=== PATIENT | female | born 1970 | race Caucasian/White ===

== ENCOUNTER 2016-10-04 15:37 | Inpatient (IN) | payer BC, OTHER ==
[~2016-10-04] VITALS: Ht 172.7 cm; Wt 70.3 kg
[2016-10-05 22:43] LABS: *URINE HCG, QUAL NEGATIVE (NEGATIVE)
[2016-10-05 22:54] LABS: *AMPHETAMINE, URINE NEGATIVE (NEGATIVE); *BARBITURATE, URINE NEGATIVE (NEGATIVE); *CANNABINOID, URINE POSITIVE (NEGATIVE); *COCCAINE, URINE NEGATIVE (NEGATIVE); *OPIATE, URINE NEGATIVE (NEGATIVE); *PHENCYCLIDINE SCREEN,URINE NEGATIVE (NEGATIVE)
[2016-10-05 23:20] VITALS: BP 144/86
--- NOTE | 2016-10-05 23:20 | NUR ---
Pre-Admission Pre-admission assessment performed in the intake department of [facility]. Pt is A&O x4 and ambulatory with a steady gait. She appears mildly intoxicated and answers all questions appropriately. She reports no known food or drug allergies. Pt states that she is here to be treated for ETOH dependence. Last drank 5 beers today at 1600. Vital signs are B/P 144/86, HR 98, RR 18, O2 sat 96%, T 98.1 pain 0/10. She explains that she had 2 grand mal seizures one month ago r/t ETOH withdrawal . Admission to continue [facility] the [facility].
[2016-10-05] MEDS ORDERED: ACETAMINOPHEN 325 MG TABLET PO PRN (23:45)
[2016-10-05] MEDS ORDERED: LORAZEPAM 1 MG TABLET PO PRN (23:45)
[2016-10-05] MEDS ORDERED: MAGNESIUM HYDROXIDE 30 ML LIQUID UDC PO PRN (23:45)
[2016-10-05] MEDS ORDERED: ONDANSETRON 4 MG/2 ML VIAL IM PRN (23:45)
[2016-10-05] MEDS ORDERED: MAG HYDROX/AL HYDROX/SIMETH 30 ML LIQUID UDC PO PRN (23:45)
[2016-10-05] MEDS ORDERED: MIRALAX 17 GM POWD.PACK PO PRN (23:45)
[2016-10-05] MEDS ORDERED: diphenhydrAMINE 50 MG CAPSULE PO PRN (23:45)
[2016-10-05] MEDS ORDERED: DICYCLOMINE HCL 20 MG TABLET PO PRN (23:45)
[2016-10-05] MEDS ORDERED: LOPERAMIDE HCL 2 MG CAPSULE PO PRN ×2 (23:45)
[2016-10-05] MEDS ORDERED: THIAMINE HCL 200 MG/2 ML VIAL IM ONE (23:45)
[2016-10-05] MEDS ORDERED: TRAZODONE 50 MG TABLET PO ONE (23:45)
[2016-10-05] MEDS ORDERED: LORAZEPAM 2 MG/1 ML VIAL IM PRN (23:45)
[2016-10-05] MEDS ORDERED: LORAZEPAM 1 MG TABLET ONE (23:58)
[2016-10-06] MEDS: LORAZEPAM 1 MG TABLET PO PRN ×3 (00:07→11:47)
--- NOTE | 2016-10-06 00:08 | NUR ---
PRN Ativan and Trazodone Pt reports feeling anxious and unable to relax. CIWA score 6. B/P 144/86 and HR 98. CIWA score 6. Pt explains that takes Trazodone every night for sleep and that it helps as a mood stabilizer. PRN Ativan and Trazodone administered.
[2016-10-06 01:07] VITALS: BP 127/76
--- NOTE | 2016-10-06 01:08 | NUR ---
PRN Ativan and Trazodone reassessment PRN Ativan and Trazodone effective. Pt is lying comfortably in bed resting with eyes closed. Respirations even and unlabored. Safety measures in place.
--- NOTE | 2016-10-06 01:10 | NUR ---
ADMISSION Pt is a 45 yo female who arrived on the [facility] at 2335 on 10/05/16 for medically supervised detox. She is A&O x4 and ambulatory with a steady gait. Body check performed by WINE STEWARD and skin check performed by the nurse. She is A&O x4 and ambulatory with a steady gait. NKA, full code status, and on a regular diet. Pt is cooperative during assessment. Vitals in intake were B/P 144/86, HR 98, RR 18, O2 sat 96%, T 98.1 pain 0/10. Pt is 5'8" and weighs 155lb. She has a [facility] grand mal seizure x2 one month ago r/t ETOH withdrawal, depression, anxiety, and bipolar. She had TMJ surgery 25 years ago and left ovary removed 10 years ago. Pt has not been on any treatment recently for anxiety and bipolar. She takes Trazodone QHS for sleep and as a mood stabilizer. Lung sounds clear, PERRLA, brisk capillary refill, bowel sounds present, skin is intact. LMP was 09/21/16 and last BM was today. History of Use Five 12oz Beers or up to 750mL vodka per day for the past 2 months. Last drank 5 beers on 10/03/16 at 1600. She has used ETOH for 14 years. Treatment History [facility] in 2016 for 90 days. [facility] in 2014 for 90 days. [facility] in 2009 for 90 days 7 other treatment centers Pt smokes 8 cigarettes per day. Prior to relapsing two months ago she had 6 months of sobriety. She decided to come to treatment today because "I went hard again". The pt explains that one month ago she quit drinking abruptly and had 2 grand mal seizures in one day. She was treated in the ED department in [place] and was advised not to stop drinking completely. Pt lives with a roommate and recently quit her job. She provided urine for UDS and test. Admission orders received. Pt educated regarding use of the call light and all questions answered. Fall and seizure precautions in place. Bed is down with call light in reach.
[2016-10-06 04:00] VITALS: BP 85/57
[2016-10-06] MEDS ORDERED: TRAZ-144 PO (05:54)
--- NOTE | 2016-10-06 07:20 | NUR ---
END OF SHIFT Report provided to day shift nurse. Pt is lying in bed resting. She is a 45 yo female admitted to [facility] on 10/05 at 2335 for ETOH dependence. She has NKA, is full code, and on a regular diet. PRN Ativan and Trazodone administered. Last CIWA was 1. She drank 500mL and slept for 5 hours.
--- NOTE | 2016-10-06 07:50 | NUR ---
START OF SHIFT Received patient this morning alert and oriented x4. Patient requesting nurse and states she feels anxious and sick. No taper ordered yet. History of seizures. He is placed on seizure precautions. PRN Ativan and Trazodone given per night nurse with effectiveness. Patient slept 5 hours. CIWA 6 upon admission then decreased to 1 during the night per night nurse. Encouraged patient to drink increased amounts of fluids this shift. Encouraged attendance of groups and activities. Will provide safe and supportive environment. Informed patient to notify RN if s/s of w/d worsen. Will continue to monitor.
[2016-10-06 07:51] LABS: BASOPHILS # (AUTO) 0.1 K/uL (0.0-8.0); BASOPHILS % (AUTO) 1.9 % (0.0-2.0); EOSINOPHILS # (AUTO) 0.1 K/uL (0.0-0.7); EOSINOPHILS % (AUTO) 2.7 % (0.0-7.0); HEMATOCRIT 36.1 % (37-47); HEMOGLOBIN 12.3 G/DL (12.0-16.0); LYMPHOCYTES # (AUTO) 1.4 K/UL (0.8-4.8); LYMPHOCYTES % (AUTO) 41.1 % (20.5-51.5); MEAN CORPUSCULAR HEMOGLOBIN 30.8 UUG (27.0-31.0); MEAN CORPUSCULAR HGB CONC 34 g/dL (32.0-37.0); MEAN CORPUSCULAR VOLUME 90.2 FL (81.0-99.0); MONOCYTES # (AUTO) 0.5 K/UL (0.1-1.30); NEUTROPHILS # (AUTO) 1.4 K/UL (1.8-8.9); NEUTROPHILS % (AUTO) 39.3 % (38.5-71.5); PLATELET COUNT (AUTO) 253 K/UL (150-450); WHITE BLOOD COUNT (AUTO) 3.5 K/UL (4.0-11.2)
[2016-10-06 08:00] VITALS: BP 104/70
[2016-10-06] MEDS: ONDANSETRON ODT 4 MG TAB.RAPDIS SL PRN (08:00)
[2016-10-06] MEDS: MULTIVITAMINS,THERAPEUTIC TABLET PO SCH (08:00)
[2016-10-06] MEDS: THIAMINE HCL 100 MG TABLET PO SCH (08:00)
[2016-10-06] MEDS: FOLIC ACID 1 MG TABLET PO SCH (08:00)
--- NOTE | 2016-10-06 08:00 | NUR ---
PRN ADMINISTRATION PRN 1 mg Ativan and ODT Zofran given for c/o anxiety,tremors, and nausea. CIWA 11. Will reassess
--- NOTE | 2016-10-06 08:38 | NUR ---
Critical lab Pt has an ETOH blood level of 0.22, notified Dr Brooks. SARY at this time. Notified primary nurse.
--- NOTE | 2016-10-06 08:40 | NUR ---
PRN REASSESSMENT CIWA 8. Patient resting in bed AOx4. She reports feeling a little less nauseous and is going to try to eat breakfast. Will continue to monitor
[2016-10-06] MEDS ORDERED: TUBERCULIN,PURIF.PROT.DERIV. 5 TU/0.1 ML TEST ID ONE (09:00)
[2016-10-06 09:03] LABS: BILIRUBIN,TOTAL 0.5 mg/dL (0.2-1.0); CREATININE 0.8 mg/dL (0.6-1.3); MAGNESIUM 2.1 mg/dL (1.8-2.4); POTASSIUM 4.1 mmol/L (3.5-5.1); TOTAL PROTEIN, SERUM 7.2 g/dL (6.4-8.2)
[2016-10-06 09:43] LABS: EOSINOPHILS % (MANUAL) 1 % (0-8); LYMPHOCYTES % (MANUAL) 47 % (20-40); MONOCYTES % (MANUAL) 18 % (2-10); NEUTROPHILS % (MANUAL) 34 % (42-75)
[2016-10-06 10:40] LABS: THYROID STIMULATING HORMONE 1.747 mIU/mL (0.358-3.740)
--- NOTE | 2016-10-06 11:47 | NUR ---
PRN MEDICATION PRN 1 mg Ativan given. CIWA 11. Will reassess
[2016-10-06 12:00] VITALS: BP 118/77
--- NOTE | 2016-10-06 12:20 | NUR ---
PRN REASSESSMENT CIWA 5. Patient states she feels less "sick" Will continue monitoring
[2016-10-06] MEDS: LORAZEPAM 1 MG TABLET PO SCH ×3 (13:35→21:00)
[2016-10-06] MEDS: GABAPENTIN 300 MG CAPSULE PO SCH ×2 (14:16→21:00)
[2016-10-06 16:00] VITALS: BP 124/86
[2016-10-06] MEDS ORDERED: TRAZODONE 50 MG TABLET PO PRN (16:30)
--- NOTE | 2016-10-06 18:41 | NUR ---
END OF SHIFT NOTE Patient started on 5 day Ativan taper and tolerating well. PRN Ativan x2 and Zofran given during shift. Patient presented with mild anxiety, nausea, and tremors intermittently during shift. Detox meds were effective in managing w/d symptoms. Last CIWA 11. Patient did not attend groups or activities during shift. Patient rested in bed most of shift. Patient presented anxious during shift and tremulous. Patient increased fluid intake as encouraged. TB test administered during shift. All needs have been met. Safety measures in place. Will endorse to oncoming nurse.
--- NOTE | 2016-10-06 19:45 | NUR ---
START OF SHIFT Received report from day shift nurse. Pt is lying in bed resting with eyes closed and is easily arousable. She is a 45 yo female admitted to [facility] on 10/05 for ETOH dependence. She has NKA, is full code, and on a regular diet. She has PMH of grand mal sz x2 08/2016, depression, anxiety, bipolar, TMJ surgery, and left ovary removed. Pt started a 5 day Ativan taper today which is working well to manage withdrawal symptoms. Fall and seizure precautions in place. Bed is down with call light in reach.
[2016-10-06 20:00] VITALS: BP 119/79
--- NOTE | 2016-10-06 21:59 | NUR ---
Nursing Note 2100 medications held for sleep. Pt is sleeping in bed and is arousable to tactile stimulation. She goes back to sleep after waking up briefly. Vital signs stable. No s/s of distress. Safety measures in place.
[2016-10-07] VITALS: BP 119/78
[2016-10-07 04:00] VITALS: BP 134/87
--- NOTE | 2016-10-07 07:20 | NUR ---
END OF SHIFT Report provided to day shift nurse. Pt showered and is getting ready for the day. She is a 45 yo female admitted to [facility] on 10/05 for ETOH dependence. She has NKA, is full code, and on a regular diet. She has PMH of grand mal sz x2 08/2016, depression, anxiety, bipolar, TMJ surgery, and left ovary removed. Pt started a 5 day Ativan taper 10/06. 2100 medications held due to sleep. Last CIWA 2. She drank 1291mL and slept 11 hours. Fall and seizure precautions in place. Bed is down with call light in reach.
--- NOTE | 2016-10-07 07:50 | NUR ---
START OF SHIFT Received patient this morning alert and oriented x4. Patient took a shower this morning and states she is feeling better than yesterday. She is on 5 day Ativan taper. History of seizures. She is placed on seizure precautions. No PRNs given per night nurse. Patient slept 11 hours. Last CIWA 2 per shift superintendent caustic cresylate. Encouraged patient to drink increased amounts of fluids this shift. Encouraged attendance of groups and activities. Will provide safe and supportive environment. Informed patient to notify RN if s/s of w/d worsen. Will continue to monitor.
[2016-10-07 08:00] VITALS: BP 126/79
[2016-10-07 08:08] LABS: HEPATITIS B SURFACE AG Negative (Negative)
[2016-10-07] MEDS: THIAMINE HCL 100 MG TABLET PO SCH (08:13)
[2016-10-07] MEDS: LORAZEPAM 1 MG TABLET PO SCH ×3 (08:14→21:26)
[2016-10-07] MEDS: FOLIC ACID 1 MG TABLET PO SCH (08:14)
[2016-10-07] MEDS: GABAPENTIN 300 MG CAPSULE PO SCH ×3 (08:14→21:26)
[2016-10-07] MEDS: MULTIVITAMINS,THERAPEUTIC TABLET PO SCH (08:14)
[2016-10-07] MEDS: ONDANSETRON ODT 4 MG TAB.RAPDIS SL PRN (08:17)
--- NOTE | 2016-10-07 08:18 | NUR ---
PRN MEDICATIONS PRN Zofran ODT given for c/o nausea and 1 vomit episode. Will reassess
--- NOTE | 2016-10-07 09:00 | NUR ---
PRN REASSESSMENT Patient reports nausea has ceased. Will monitor
[2016-10-07 12:00] VITALS: BP 143/94
[2016-10-07 16:00] VITALS: BP 139/94
--- NOTE | 2016-10-07 18:02 | NUR ---
PRN MEDS PRN VISTARIL GIVEN FOR C/O ANXIETY. WILL REASSESS
[2016-10-07] MEDS: HYDROXYZINE PAMOATE 25 MG CAPSULE PO PRN (18:03)
--- NOTE | 2016-10-07 18:30 | NUR ---
PRN REASSESSMENT patient noted to be resting calmly in bed. she reports feeling less anxious. no distress noted. will monitor
--- NOTE | 2016-10-07 18:33 | NUR ---
END OF SHIFT NOTE Patient continues on 5 day Ativan taper and tolerating well. PRN Zofran given in the morning for nausea and one episode of vomiting with effectiveness. Patient presents with brighter mood and affect during shift with reports of feeling better. Detox meds are effective in managing s/s or w/d. Last CIWA 4. Patient showered during shift, attended groups and activities. She attended yoga and stated it was relaxing for her. Patient increased fluid intake as encouraged. All needs have been met. Safety measures in place. Will endorse to oncoming nurse.
--- NOTE | 2016-10-07 19:00 | NUR ---
Start of Shift Patient Received. Patient is in activities room participating in group meeting. Patient is a 45 year old female, admitted on 10/05/16 for ETOH Dependence under the care of Dr. Brooks. Patient is currently receiving a 5 day Ativan taper. Patient verbalizes no known allergies, wishes to be full code, following a regular diet, placed on fall and seizure precautions, skin noted intact. Patients past medical history noted as Grand Mal Seizures x2, Depressions, Anxiety, Bipolar, Surgery x2 due to TMJ and Left Ovary removed. Per endorsement, patient was given PRN Vistaril and Zofran with medication noted to be effective. Last noted CIWA noted to be 5. All needs attended to promptly. Will continue plan of care as ordered.
[2016-10-07 20:30] VITALS: BP 140/97
[2016-10-07] MEDS: TRAZODONE 50 MG TABLET PO PRN (21:26)
--- NOTE | 2016-10-07 21:26 | NUR ---
PRN Medication Administration Patient noted to verbalize inability of falling asleep. All non-pharmacological interventions noted to be not effective. PRN Trazodone administered as per orders. Will continue to monitor accordingly.
[2016-10-08 00:28] VITALS: BP 105/61
--- NOTE | 2016-10-08 00:29 | NUR ---
CIWA Deferred Patient noted in bed sleeping. breathing even and non labored. CIWA deferred due to orders of Q4HWA. No pain or discomfort noted. patient continues to sleep well with no interruptions noted. Will continue to monitor. Addendum: 10/08/16 at 0049 by SANTA ODONNELL LVN Amended: Links added.
[2016-10-08 04:15] VITALS: BP 101/68
--- NOTE | 2016-10-08 04:15 | NUR ---
CIWA Deferred Patient noted in bed sleeping. breathing even and non labored. CIWA deferred due to orders of Q4HWA. No pain or discomfort noted. patient continues to sleep well with no interruptions noted. Will continue to monitor. Addendum: 10/08/16 at 0518 by SANTA ODONNELL LVN Amended: Links added.
--- NOTE | 2016-10-08 07:19 | NUR ---
End of Shift Patient is noted in bed, awake, alert and verbally responsive. Breathing even and non labored. No signs of pain or discomfort noted. Patient is a 45 year old female, admitted on 10/05/16 for ETOH Dependence under the care of Dr. Brooks. Patient is currently receiving a 5 day Ativan taper. Patient verbalizes NKA, full code, regular diet, placed on fall and seizure precautions, skin noted intact. Patients past medical history noted as Grand Mal Seizures x2, Depressions, Anxiety, Bipolar, Surgery x2 due to TMJ and Left Ovary removed. Patient was given PRN Trazodone. Patient noted to sleep a total of 7 hours. Last CIWA noted was 5. All needs attended to promptly. Will continue plan of care as ordered.
--- NOTE | 2016-10-08 07:51 | NUR ---
START OF SHIFT Received patient this morning alert and oriented x4. Patient took a shower this morning and states she feels happier and better. She is smiling and presents brighter. She is on 5 day Ativan taper. History of seizures. She is placed on seizure precautions. PRN Trazodone given for sleep with effectiveness per night nurse. Patient slept 7 hours. Last CIWA 5 per manager etl. Encouraged patient to drink increased amounts of fluids this shift. Encouraged attendance of groups and activities. Will provide safe and supportive environment. Informed patient to notify RN if s/s of w/d worsen. Will continue to monitor.
[2016-10-08 08:00] VITALS: BP 102/65
[2016-10-08] MEDS: FOLIC ACID 1 MG TABLET PO SCH (08:52)
[2016-10-08] MEDS: THIAMINE HCL 100 MG TABLET PO SCH (08:52)
[2016-10-08] MEDS: MULTIVITAMINS,THERAPEUTIC TABLET PO SCH (08:52)
[2016-10-08] MEDS: LORAZEPAM 1 MG TABLET PO SCH ×4 (08:52→20:46)
[2016-10-08] MEDS: GABAPENTIN 300 MG CAPSULE PO SCH ×3 (08:53→20:46)
[2016-10-08 12:00] VITALS: BP 120/92
--- NOTE | 2016-10-08 14:48 | NUR ---
PRN MIRALAX GIVEN FOR CONSTIPATION. WILL MONITOR EFFECTIVENESS
[2016-10-08 16:00] VITALS: BP 137/89
--- NOTE | 2016-10-08 16:00 | NUR ---
PRN REASSESSMENT patient reports miralax with not effective. she states "maybe i will try something else later"
--- NOTE | 2016-10-08 18:18 | NUR ---
END OF SHIFT NOTE Patient continues on 5 day Ativan taper and tolerating well. PRN Miralax given with no relief. Patient presents with brighter mood and affect during shift with reports of feeling better. Detox meds are effective in managing s/s or w/d. Last CIWA 3. Patient showered during shift, attended groups and activities. Patient increased fluid intake as encouraged. Vital signs stable. All needs have been met. Safety measures in place. Will endorse to oncoming nurse.
--- NOTE | 2016-10-08 19:10 | NUR ---
Start of Shift Patient Received. Patient is in activities room participating in group meeting. Patient is a 45 year old female, admitted on 10/05/16 for ETOH Dependence under the care of Dr. Brooks. Patient is currently receiving a 5 day Ativan taper. Patient verbalizes no known allergies, wishes to be full code, following a regular diet, placed on fall and seizure precautions, skin noted intact. Per endorsement, patient was given PRN Miralax with medication noted not effective. Last CIWA noted 3. All needs attended to promptly. Will continue plan of care as ordered.
[2016-10-08 20:05] VITALS: BP 127/92
--- NOTE | 2016-10-08 20:46 | NUR ---
PRN Medication Administration Patient verbalizing increased feelings of constipation. PRN MOM requested and administered with routine medication. Will continue to monitor.
[2016-10-08] MEDS: TRAZODONE 50 MG TABLET PO PRN (21:17)
[2016-10-09 00:10] VITALS: BP 102/73
--- NOTE | 2016-10-09 00:10 | NUR ---
CIWA Deferred Patient noted in bed sleeping. breathing even and non labored. CIWA deferred due to orders of Q4HWA. No pain or discomfort noted. patient continues to sleep well with no interruptions noted. Will continue to monitor. Addendum: 10/09/16 at 0154 by SANTA ODONNELL LVN Amended: Links added.
[2016-10-09 04:05] VITALS: BP 106/70
--- NOTE | 2016-10-09 04:10 | NUR ---
CIWA Deferred Patient noted in bed sleeping. CIWA deferred due to orders of Q4HWA. No pain or discomfort noted. patient continues to sleep well with no interruptions noted. Addendum: 10/09/16 at 0513 by SANTA ODONNELL LVN Amended: Links added.
--- NOTE | 2016-10-09 07:06 | NUR ---
End of Shift Patient is noted in bed, awake, alert and verbally responsive. Breathing even and non labored. Patient is a 45 year old female, admitted on 10/05/16 for ETOH Dependence. Patient is currently receiving a 5 day Ativan taper. NKA, full code, regular diet, placed on fall and seizure precautions, skin noted intact. Patient was given PRN MOM for constipation with no BM noted. Will endorse to continue to monitor. Patient was also given PRN Trazodone. Patient noted to sleep a total of 7 hours. Last CIWA noted was 7. All needs attended to promptly. Will continue plan of care as ordered.
[2016-10-09 08:00] VITALS: BP 120/82
--- NOTE | 2016-10-09 08:00 | NUR ---
START OF SHIFT Pt 45 y/o female admitted for etoh dependence. Pt received in room on bed awake watching television. Pt alert and oriented to name, place, and time. Perrla. Skin warm and slightly moist to touch. Respirations even and unlabored. Bilateral hand tremors noted slightly. It was reported that pt slept for 7 hours last night. Bed on lowest position with side rails x2 up for safety. Call light within reach. No distress noted at this time.
--- NOTE | 2016-10-09 08:00 | NUR ---
NSG ENTRY Pt stated she had a BM this morning.
[2016-10-09] MEDS: LORAZEPAM 1 MG TABLET PO SCH ×3 (08:53→20:37)
[2016-10-09] MEDS: THIAMINE HCL 100 MG TABLET PO SCH (08:53)
[2016-10-09] MEDS: GABAPENTIN 300 MG CAPSULE PO SCH ×3 (08:53→20:37)
[2016-10-09] MEDS: FOLIC ACID 1 MG TABLET PO SCH (08:53)
[2016-10-09] MEDS: MULTIVITAMINS,THERAPEUTIC TABLET PO SCH (08:53)
[2016-10-09 12:00] VITALS: BP 128/88
[2016-10-09] MEDS: HYDROXYZINE PAMOATE 25 MG CAPSULE PO PRN (14:30)
--- NOTE | 2016-10-09 14:30 | NUR ---
PRN Pt states feels anxious and restless. Vistaril po prn per MD order given and tolerated well.
--- NOTE | 2016-10-09 15:20 | NUR ---
PROtoniel CLOUD. Pt observed in room on bed. No distress noted at this time.
[2016-10-09 16:00] VITALS: BP 136/93
--- NOTE | 2016-10-09 18:26 | NUR ---
END OF SHIFT Pt 45 y/o female admitted for etoh dependence. Pt alert and oriented to name, place, and time. Perrla. Skin warm and slightly moist to touch. Respirations even and unlabored. Bilateral hand tremors noted slightly. Pt observed mostly in activity room and patio throughout most of the day. Pt medication compliant and tolerated well. No ASE noted. Bed on lowest position with side rails x2 up for safety. Call light within reach. No distress noted at this time.
--- NOTE | 2016-10-09 19:15 | NUR ---
Start of Shift Patient Received. Patient is in activities room participating in group meeting. Patient is a 45 year old female, admitted on 10/05/16 for ETOH Dependence under the care of Dr. Brooks. Patient is currently receiving a 5 day Ativan taper. No known allergies, full code, regular diet, fall and seizure precautions, skin noted intact. Per endorsement, patient was given PRN Vistaril for increased anxiety and medications noted to be effective. Last CIWA noted 2. All needs attended to promptly. Will continue plan of care as ordered.
[2016-10-09 20:15] VITALS: BP 137/96
[2016-10-09] MEDS: TRAZODONE 50 MG TABLET PO PRN (20:37)
--- NOTE | 2016-10-09 21:45 | NUR ---
PRN Medication Reassessment Patient noted in bed sleeping. Breathing even and non labored. No signs of pain or discomfort noted. Patient was given PRN Trazodone for inability of falling asleep. Medication noted to be effective. Patients respirations noted to be 14 and continues to sleep with no interruptions noted.
[2016-10-10 00:52] VITALS: BP 103/71
--- NOTE | 2016-10-10 00:56 | NUR ---
CIWA Deferred Patient noted in bed sleeping. breathing even and non labored. CIWA deferred due to orders of Q4HWA. No pain or discomfort noted. patient continues to sleep well with no interruptions noted. Will continue to monitor. Addendum: 10/10/16 at 0057 by SANTA ODONNELL LVN Amended: Links added.
[2016-10-10 04:20] VITALS: BP 106/65
--- NOTE | 2016-10-10 04:21 | NUR ---
CIWA Deferred Patient noted in bed sleeping. breathing even and non labored. CIWA deferred due to orders of Q4HWA. No pain or discomfort noted. patient continues to sleep well with no interruptions noted. Will continue to monitor. Addendum: 10/10/16 at 0422 by SANTA ODONNELL LVN Amended: Links added.
--- NOTE | 2016-10-10 07:14 | NUR ---
End of Shift Patient is noted in bed, awake, alert and verbally responsive. Breathing even and non labored. Patient is a 45 year old female, admitted on 10/05/16 for ETOH Dependence. Patient is currently receiving a 5 day Ativan taper. NKA, full code, regular diet, placed on fall and seizure precautions, skin noted intact. Patient was given PRN Trazodone. Patient noted to sleep a total of 8 hours. Last CIWA noted was 7. All needs attended to promptly. Will continue plan of care as ordered.
[2016-10-10 08:00] VITALS: BP 124/93
--- NOTE | 2016-10-10 08:00 | NUR ---
START OF SHIFT Pt 45 y/o female admitted for etoh dependence. Pt received in room on bed awake watching television. Pt alert and oriented to name, place, and time. Perrla. Skin warm and slightly moist to touch. Respirations even and unlabored. Bilateral hand tremors noted slightly. It was reported that pt slept for 8 hours last night. Bed on lowest position with side rails x2 up for safety. Call light within reach. No distress noted at this time.
[2016-10-10] MEDS: GABAPENTIN 300 MG CAPSULE PO SCH ×3 (08:34→20:33)
[2016-10-10] MEDS: HYDROXYZINE PAMOATE 25 MG CAPSULE PO PRN ×2 (08:34→14:34)
--- NOTE | 2016-10-10 08:34 | NUR ---
PRN Pt appears anxious, fidgety in bed and pressured speech noted. Vistaril po prn per MD order given and tolerated well.
[2016-10-10] MEDS: CLONIDINE HCL 0.1 MG TABLET PO PRN ×2 (08:35→14:35)
[2016-10-10] MEDS: FOLIC ACID 1 MG TABLET PO SCH (08:35)
[2016-10-10] MEDS: THIAMINE HCL 100 MG TABLET PO SCH (08:35)
[2016-10-10] MEDS: LORAZEPAM 1 MG TABLET PO SCH ×2 (08:35→20:33)
[2016-10-10] MEDS: MULTIVITAMINS,THERAPEUTIC TABLET PO SCH (08:35)
--- NOTE | 2016-10-10 08:35 | NUR ---
PRN Pt states she still feels anxious. Catapres po prn per MD order given and tolerated well.
--- NOTE | 2016-10-10 09:35 | NUR ---
ERICA CLOUD Pt observed in room on bed watching television.
[2016-10-10 12:54] VITALS: BP 113/67
[2016-10-10 16:00] VITALS: BP 112/81
[2016-10-10 20:00] VITALS: BP 123/76
--- NOTE | 2016-10-10 20:00 | NUR ---
Start of shift Pt is a 45 year old female admitted for ETOH dependence, placed on 5 day Ativan taper. Pt reported consuming 5 beers, up to 750mls of Vodka/daily for 2 months. PMH: grand mal seizure x2 one month ago, depression, anxiety, bipolar, TMJ and L. ovary removal 10 years ago. Upon assessment, pt reports feeling anxiety, reports feeling chills throughout body, respirations even/unlabored, denies SOB/chest pain, denies n/v/d, bowel sounds active x4, abdomen soft. Safety measures in place, call light within reach, side rails up x2, bed locked and in low position. Will continue to monitor.
[2016-10-10] MEDS: TRAZODONE 50 MG TABLET PO PRN (20:34)
--- NOTE | 2016-10-10 20:34 | NUR ---
PRN Administered Pt reported difficulty falling asleep, requested aid. Trazodone 150mg PRN administered. Safety measures in place. Will continue to monitor.
--- NOTE | 2016-10-10 21:34 | NUR ---
PRN Reassessment Upon reassessment, pt is sleeping, no s/s of acute distress noted, respirations even/unlabored. Safety measures in place. Will continue to monitor.
[2016-10-11] VITALS: BP 111/88
--- NOTE | 2016-10-11 | NUR ---
Vital Signs BP 111/88, pulse 82, SpO2 97%, respirations 14, temp 97.8, and no pain 0/10 CIWA deferred due to pt sleeping to assess while pt is awake as ordered. Safety measures in place. Will continue to monitor.
--- NOTE | 2016-10-11 04:00 | NUR ---
Pt refused to be woken up for 0400 VS CIWA deferred d/t pt sleeping to assess while pt is awake as ordered. Safety measures in place. Will continue to monitor.
[2016-10-11] MEDS: HYDROXYZINE PAMOATE 25 MG CAPSULE PO PRN ×2 (05:25→12:38)
--- NOTE | 2016-10-11 05:25 | NUR ---
PRN Administration Pt reports feeling anxious, requests relief. Non-pharmacological methods ineffective. Vistaril 50mg PRN administered. Safety measures in place. will continue to monitor.
--- NOTE | 2016-10-11 06:25 | NUR ---
PRN Reassessment Upon reassessment, pt states, "I'm getting better. I'm less anxious". Needs met, safety measures in place,will continue to monitor.
--- NOTE | 2016-10-11 07:00 | NUR ---
End of Shift Pt is a 45 year old female admitted for ETOH dependence, placed on 5 day Ativan taper. Pt reported consuming 5 beers, up to 750mls of Vodka/daily for 2 months. PMH: grand mal seizure x2 one month ago, depression, anxiety, bipolar, TMJ and L. ovary removal 10 years ago. During shift, pt reported feeling anxiety, reports feeling chills throughout body scheduled taper medications administered effective in management of s/s of withdrawal as reported per pt, CIWA 2. Trazodone 150mg PRN administered for sleep, effective. Vistaril 50mg PRN administered for anxiety. Pt slept for 5 hours, intake of 1910 ml PO, voids x3 and stool x0. Safety measures in place, call light within reach, side rails up x2, bed locked and in low position. Endorsed to day shift nurse.
--- NOTE | 2016-10-11 07:45 | NUR ---
START OF SHIFT NOTE Received pt alert awake oriented x4 in stable condition, Pt came to nursing station and stated she feeling better and wants to go for smoke. Pt is admitted for ETOH dependence. Pt with ongoing 5 day Ativan taper. Pt reported consuming 5 beers, up to 750mls of Vodka/daily for 2 months. PMH: grand mal seizure x2 one month ago, depression, anxiety, bipolar, TMJ and L. ovary removal 10 years ago. Per night nurse pt received PRN Trazodone and Vistaril effective, slept for 5 hours, Last CIWA-2. Educated pateitn regarding plan of care for the day and medication regimen with good verbal understanding. All safety measures in place, Call light within reach. Will cont to monitor.
[2016-10-11 08:00] VITALS: BP 142/99
[2016-10-11] MEDS: MULTIVITAMINS,THERAPEUTIC TABLET PO SCH (09:02)
[2016-10-11] MEDS: FOLIC ACID 1 MG TABLET PO SCH (09:02)
[2016-10-11] MEDS: THIAMINE HCL 100 MG TABLET PO SCH (09:02)
[2016-10-11] MEDS: GABAPENTIN 300 MG CAPSULE PO SCH ×3 (09:02→21:23)
--- NOTE | 2016-10-11 09:44 | NUR ---
PRN TYLENOL Pt c/o of headache 07/27, administered PRN Tylenol 650mg as ordered. Will cont to monitor and reassess.
--- NOTE | 2016-10-11 10:44 | NUR ---
REASSESSMENT Pt reported medication effective, headache decreased to 1/10. Will cont to monitor.
[2016-10-11 12:00] VITALS: BP 144/98
[2016-10-11] MEDS: CLONIDINE HCL 0.1 MG TABLET PO PRN (12:39)
--- NOTE | 2016-10-11 12:39 | NUR ---
PRN CLONIDINE/VISTARIL Pt c/o of anxiety, agitation, sweats, chills. Administered PRN Vistaril 50mg, Clonidine 0.1mg as ordered. Will cont to monitor and reassess.
--- NOTE | 2016-10-11 13:39 | NUR ---
PRN REASSESSMENT Patient noted resting calmly in bed. He reports feeling less anxious. no distress noted. No chills and sweats. Will monitor
[2016-10-11 15:09] LABS: *AMPHETAMINE, URINE NEGATIVE (NEGATIVE); *BARBITURATE, URINE NEGATIVE (NEGATIVE); *CANNABINOID, URINE NEGATIVE (NEGATIVE); *COCCAINE, URINE NEGATIVE (NEGATIVE); *OPIATE, URINE NEGATIVE (NEGATIVE); *PHENCYCLIDINE SCREEN,URINE NEGATIVE (NEGATIVE)
[2016-10-11 16:00] VITALS: BP 124/84
[2016-10-11] MEDS ORDERED: HYDR-3895 PO (16:32)
[2016-10-11] MEDS ORDERED: GABA-534 PO (16:32)
[2016-10-11] MEDS ORDERED: ONDA4TAB11 SL (16:32)
[2016-10-11] MEDS ORDERED: TRAZ-144 PO (16:32)
[2016-10-11] MEDS ORDERED: CLON0.1T14 PO (16:32)
--- NOTE | 2016-10-11 19:20 | NUR ---
END OF SHIFT NOTE Pt is admitted for ETOH dependence. Pt completed her 5 day Ativan taper tolerated well. Pt presented anxiousness, headache chills and sweats. given PRN Tylenol, Clonidine,Vistaril. Pt scheduled for discharge in AM. Pt able to provide UA, UDS completed and placed in the chart. Vital signs within normal range. Encouraged pt to attend groups and activities to learn new coping skills with good verbal understanding. Encouraged Po fluids as tolerated well. All safety measures in place, call light within reach. Pt endorsed to night nurse in stable condition.
[2016-10-11 20:00] VITALS: BP 123/80
--- NOTE | 2016-10-11 20:00 | NUR ---
Start of shift Patient is a 45-year old, female, admitted for ETOH dependence. With MHx grand mal seizure x2 one month ago, depression, anxiety, bipolar, TMJ and left ovary removal 10 years ago. Pt was placed on a 5-day Ativan taper and completed. No adverse reactions. For discharge to home tomorrow. Pt is AAOx4 and with mild anxiety noted at this time. Pt is ambulatory with steady gait and with intact skin. Fall, seizure, universal and safety prec in place. Call light within reach. Latest CIWA=2. Will continue to monitor pt.
[2016-10-11] MEDS: TRAZODONE 50 MG TABLET PO PRN (21:23)
--- NOTE | 2016-10-11 21:24 | NUR ---
RN note PRN Trazodone Pt c/o inability to sleep. Administered Trazodone 150 mg PO as ordered. Will reassess.
--- NOTE | 2016-10-11 22:28 | NUR ---
RN note reassess Pt asleep on bed, with no SOB nor facial grimacing noted.
--- NOTE | 2016-10-12 00:10 | NUR ---
RN note Pt refused vital signs and CIWA assessment for 0000 despite explanation of risks and benefits. RR=16.
--- NOTE | 2016-10-12 04:05 | NUR ---
RN note Pt refused vital signs and CIWA assessment for 0400 despite explanation of risks and benefits. No SOB nor facial grimacing noted. RR=16.
--- NOTE | 2016-10-12 04:06 | NUR ---
Assumed Patient Care
[2016-10-12] MEDS: HYDROXYZINE PAMOATE 25 MG CAPSULE PO PRN (06:39)
[2016-10-12] MEDS: CLONIDINE HCL 0.1 MG TABLET PO PRN (06:40)
--- NOTE | 2016-10-12 06:40 | NUR ---
PRN Administration Pt is emotional, skin is flushed, irritability and tremors noted. Pt states, "I just feel so anxious". Clonidine 0.1mg PRN and Vistaril 50mg PRN administered. Safety measures in place. Will endorse onto day shift nurse to monitor effectiveness.
--- NOTE | 2016-10-12 07:00 | NUR ---
End of Shift Pt is a 45 year old female admitted for ETOH dependence, placed on 5 day Ativan taper - completed taper. Pt reported consuming 5 beers, up to 750mls of Vodka/daily for 2 months. PMH: grand mal seizure x2 one month ago, depression, anxiety, bipolar, TMJ and L. ovary removal 10 years ago. Trazodone given for complaints of difficulty sleeping, effective. Clonidine 0.1mg PRN and Vistaril 50mg PRN administered for irritability, anxiety and clammy skin with tremors noted. Pt is scheduled for discharge today. Pt slept for 8 hours, intake of 2500 ml PO, voids x3 and stool x0. Latest CIWA 2. Safety measures in place, call light within reach, side rails up x2, bed locked and in low position. Endorsed to day shift nurse.
--- NOTE | 2016-10-12 07:35 | NUR ---
PRN REASSESSMENT Patient reports feeling less anxious. She was able to shower and states feeling a lot better. She reports brighter and calm. Will monitor
--- NOTE | 2016-10-12 07:48 | NUR ---
START OF SHIFT Received patient this morning alert and oriented x4. Patient scheduled to discharge today and reports feeling ready to leave. She completed Ativan taper. PRN Trazodone, Clonidine, and Vistaril given per night nurse with effectiveness. Patient slept 8 hours. Last CIWA 2 per overnight associate. Will continue to monitor. Vitals stable. patient in stable condition. Will discharge this shift.
[2016-10-12 08:00] VITALS: BP 112/87
[2016-10-12] MEDS: FOLIC ACID 1 MG TABLET PO SCH (08:22)
[2016-10-12] MEDS: GABAPENTIN 300 MG CAPSULE PO SCH (08:22)
[2016-10-12] MEDS: THIAMINE HCL 100 MG TABLET PO SCH (08:22)
[2016-10-12] MEDS: MULTIVITAMINS,THERAPEUTIC TABLET PO SCH (08:22)
--- NOTE | 2016-10-12 11:06 | NUR ---
DISCHARGE NOTE Patient is in stable condition. Vital signs wnl, patient is AoX4. Skin intact. Patient denies S/I or H/I. All discharge paperwork is completed, dated and signed. Patient educated of dc instructions, what to do after dc, and when to contact MD. Pt verbalized understanding of all info given. Last CIWA 1. Patient was discharged from [facility] on 10/12/16 at 1059. Patient was escorted to lobby by [employer]IS COORDINATOR and picked up by [employer]. Patient left building with all belongings, rx, and medications. Md has been notified of pt discharge.
== END 2016-10-12 11:00 | disposition other institution (70) | DRG 895 ==
LOC: SRC 10-05 22:15
PROVIDERS: ADMIT Internal Medicine; ATTEND Internal Medicine
PROC: HZ2ZZZZ Detoxification Services for Substance Abuse Treatment (ICD-10-PCS; principal; 2016-10-05)
PROC: HZ41ZZZ Group Counseling for Substance Abuse Treatment, Behavioral (ICD-10-PCS; 2016-10-07)
DX: F10.230 Alcohol dependence with withdrawal, uncomplicated (principal); F10.220 Alcohol dependence with intoxication, uncomplicated; Y90.9 Presence of alcohol in blood, level not specified; F31.9 Bipolar disorder, unspecified; F41.9 Anxiety disorder, unspecified; F17.210 Nicotine dependence, cigarettes, uncomplicated; Z79.899 Other long term (current) drug therapy; F12.10 Cannabis abuse, uncomplicated; G47.00 Insomnia, unspecified
CPT/HCPCS: 36415; 70030-TC; 80307; 80349; 83690; 83735; 84443; 84703; 85025; 86580; 86592; 86705; 86803; 87340; 87806; G0480; J3411; Q0162